=== PATIENT | female | born 1960 ===

== ENCOUNTER 2020-04-26 12:02 | Emergency (ER) | payer OTHER ==
[~2020-04-26] VITALS: Ht 160 cm; Wt 45.4 kg
[2020-04-26] MEDS ORDERED: PEPCID AC20 MG PO (15:10)
[2020-04-26] MEDS ORDERED: DICY20TA PO (15:10)
== END 2020-04-26 19:15 | disposition home or self-care (01) ==
LOC: ER 12:02
DX: K57.30 Diverticulosis of large intestine without perforation or abscess without bleeding (principal)

== ENCOUNTER 2021-01-08 15:53 | Emergency (ER) | payer OTHER ==
[~2021-01-08] VITALS: Ht 160 cm; Wt 49.9 kg
[~2021-01-08 15:53] MED LIST: DICY20TA PO; PEPCID AC20 MG PO
== END 2021-01-08 22:02 | disposition home or self-care (01) ==
LOC: ER 15:53
DX: K57.30 Diverticulosis of large intestine without perforation or abscess without bleeding (principal); N39.0 Urinary tract infection, site not specified; R10.32 Left lower quadrant pain